=== PATIENT | male | born 1965 | race African-American/Black ===

== ENCOUNTER 2017-07-30 17:00 | Emergency (ER) | payer OTHER ==
[~2017-07-30] VITALS: Ht 172.7 cm; Wt 95.5 kg
[2017-07-30 19:18] VITALS: BP 162/104
[2017-07-30] MEDS ORDERED: DIAZEPAM 5 MG TABLET PO ONE (19:30)
[2017-07-30] MEDS ORDERED: KETOROLAC TROMETHAMINE 60 MG/2 ML VIAL IM ONE (19:30)
== END 2017-07-30 21:11 | disposition home or self-care (01) ==
LOC: EMS 17:01
DX: S13.4XXA Sprain of ligaments of cervical spine, initial encounter (principal); S46.911A Strain of unspecified muscle, fascia and tendon at shoulder and upper arm level, right arm, initial encounter; V49.59XA Passenger injured in collision with other motor vehicles in traffic accident, initial encounter; Y92.89 Other specified places as the place of occurrence of the external cause; Y99.9 Unspecified external cause status
CPT/HCPCS: 72040; 73030; 96372; 99284; J1885